=== PATIENT | male | born 1985 | race Two or more races ===

== ENCOUNTER 2024-08-29 11:59 | Emergency (ER) | payer MEDICAID, SELFPAY ==
[2024-08-29 12:00] VITALS: BMI 24.4
[2024-08-29 12:55] VITALS: PULSE 100; RESP 18; TEMP 37.2; O2SAT 98
--- NOTE | 2024-08-29 13:31 | PD.EDURI ---
Upper Respiratory Inf. RME/HPI General Chief Complaint: Chest Pain Stated Complaint: CXP/DIFF BREATHING/SWEATY X 3 DAYS Time Seen by Provider: 08/29/24 13:13 Arrival date/time: 08/29/24 11:59 39-year-old male presents emergency department complains of cough, congestion, body aches and fever patient for symptoms ongoing for last few days patient's son tested positive for influenza there are no other associated symptoms or aggravating factors no other modifying factors, patient denies taking medication before coming to ER today Limitations: no limitations Related Data Home Medications ?Medication ?Instructions ?Recorded ?Confirmed mirtazapine 15 mg tablet 15 mg PO QDAY 03/11/21 03/11/21 risperidone 3 mg tablet 3 mg PO QDAY 03/11/21 03/11/21 Previous Rx's ?Medication ?Instructions ?Recorded acetaminophen 500 mg capsule 1,000 mg (2 x 500 mg) PO Q6H PRN 03/24/22 fever or pain #30 caps ibuprofen 600 mg tablet 600 mg PO TID #30 tabs 03/24/22 sumatriptan succinate 50 mg tablet 50 mg PO Q2H #10 tabs 07/16/23 (Imitrex) ibuprofen 800 mg tablet 800 mg PO TID PRN pain #30 tabs 12/26/23 benzonatate 100 mg capsule 100 mg PO TID #14 caps 08/29/24 ibuprofen 600 mg tablet 600 mg PO Q6H #30 tabs 08/29/24 prednisone 10 mg tablet 30 mg (3 x 10 mg) PO BID 3 days 08/29/24 #18 tabs Allergies Allergy/AdvReac Type Severity Reaction Status Date / Time bee venom protein (honey bee) Allergy Severe Swelling Verified 08/29/24 12:03 of Lip/Tongue/Throat Review of Systems Review of Systems Systems Reviewed: All systems reviewed, normal except as documented Constitutional Constitutional: Reports system reviewed and no additional complaints, except as documented, Reports body ache(s), Reports chills, Reports fever(s) and Reports headache(s) Eyes Eyes: Reports system reviewed and no additional complaints, except as documented and Denies blurry vision ENT Ears, Nose, Mouth, and Throat: Reports system reviewed and no additional complaints, except as documented, Reports headache(s), Denies nasal congestion and Denies nasal discharge Cardiovascular Cardiovascular: Reports system reviewed and no additional complaints, except as documented, Denies chest pain and Denies dyspnea Respiratory Respiratory: Reports system reviewed and no additional complaints, except as documented, Reports chest congestion, Reports cough and Denies dyspnea Gastrointestinal Gastrointestinal: Reports system reviewed and no additional complaints, except as documented and Denies abdominal pain Integumentary/Breasts Skin/Breast: Reports system reviewed and no additional complaints, except as documented and Denies rash Neurologic Neurologic: Reports system reviewed and no additional complaints, except as documented, Reports as per HPI and Reports headache(s) Past Medical History Past Medical History NEUROLOGIC: Negative Neurological Disorders CARDIAC: Negative Cardiac Disorders or Congestive Heart Failure RESPIRATORY: Negative Chronic Obstructive Pulmonary Disease (COPD) GASTROINTESTINAL: Negative Gastrointestinal Disorders GENITOURINARY: Negative Genitourinary Disorders or Renal Disease MUSCULOSKELETAL: Negative Musculoskeletal Disorders ENDOCRINE: Negative Endocrine Disorders, Diabetes Mellitus Type 1 or Diabetes Mellitus Type 2 HEMATOLOGIC: Negative Blood Disorders PSYCHO/SOCIAL: Positive Psychiatric Problems and Recreational Drug Use Social History SMOKING STATUS: Never smoker SUBSTANCE USE: methamphetamine ED Exam General Limitations: Present no limitations General appearance: Present alert and in no apparent distress Head Head exam: Present atraumatic Eye Eye exam: Present normal appearance, PERRL and EOMI ENT ENT exam: Present normal exam, normal oropharynx and mucous membranes moist Neck Neck exam: Present normal inspection, full ROM and trachea midline Chest Chest inspection: Present normal inspection and symmetric chest wall rise Respiratory Respiratory exam: Present normal lung sounds bilaterally; Absent respiratory distress Cardiovascular Cardiovascular exam: Present regular rate, normal rhythm and normal heart sounds Abdominal Exam Abdominal exam: Present soft and normal bowel sounds; Absent distention, tenderness, guarding, rebound or rigidity Extremities Exam Extremities exam: Present normal inspection and full ROM Back Exam Back exam: Present normal inspection and full ROM Neurological Exam Neurological exam: Present alert, oriented X3 and CN II-XII intact Psychiatric Psychiatric exam: Present normal affect and normal mood Skin Skin exam: Present warm, dry, intact and normal color Course Quality Measures none Orders Category Date Time Status Bedside Influenza A&B Antigen Test NOW Care 08/29/24 12:54 Completed EKG (ED Only) Stat Exams 08/29/24 12:52 Stop Req Vital Signs Vital signs: Vital Signs Temperature 99 F 08/29/24 12:55 Pulse Rate 100 08/29/24 12:55 Respiratory Rate 18 08/29/24 12:55 Pulse Oximetry (%) 98 08/29/24 12:55 Oxygen Delivery Method Room Air 08/29/24 12:55 O2 saturation 98% room air within normal limits Upper Respiratory Infection MDM Narrative MDM Narrative:: 39-year-old male presents emergency department complains of cough, congestion, body aches and fever patient for symptoms ongoing for last few days patient's son tested positive for influenza there are no other associated symptoms or aggravating factors no other modifying factors, patient denies taking medication before coming to ER today On exam patient does not appear ill or toxic patient reports no significant medical problems Patient symptoms highly consistent with viral illness I suspect patient has flu Patient checked for influenza Patient tested positive for influenza Patient discharged home in no distress to follow-up with primary care doctor in the next 24 to 48 hours and for any worsening symptoms to return to the ER immediately Patient data External records reviewed:: [facility] previous records Clinical information provided by:: patient Social determinants that could affect healthcare access:: none Patient has the following chronic illnesses:: See history How is presenting disease/condition affected by chronic disease/condition?: uneffected by Evaluation data The following diagnostics were reviewed and interpreted by me:: lab results Lab and/or radiology exams considered but not ordered:: Lab obtained Interpretation Summary: Reviewed by me Medications / Prescriptions Medications or Prescriptions considered but not ordered:: Given Medication administrations:: Given Consultations Consultation(s) initiated? (list below): No Diagnosis Upper Respiratory Differential Diagnosis: upper respiratory infection, otitis media, sinusitis and viral infection Most likely diagnosis given after review of the tests above:: Influenza Admission Indicated Admission indicated?: not indicated Admission Request Was there a request for admission?: No Disposition Plan Disposition Plan: Discharge Discharge Attestation Discharge Attestation: The patient and all family members were given an opportunity to ask questions and understood the discharge instructions. Discharge instructions specifically effects, indications for sooner follow up or return to the emergency department, and the expected course of current diagnosis. Patient condition: Stable Discharge Plan Plan Patient Disposition: HOME (Self Care) Disposition Comment: Stable Prescriptions/Referrals Prescriptions/Med Rec: New prednisone 10 mg tablet 30 mg PO BID 3 Days Qty: 18 0RF benzonatate 100 mg capsule 100 mg PO TID Qty: 14 0RF ibuprofen 600 mg tablet 600 mg PO Q6H Qty: 30 0RF No Action risperidone 3 mg Tablet 3 mg PO QDAY mirtazapine 15 mg Tablet 15 mg PO QDAY ibuprofen 600 mg tablet 600 mg PO TID Qty: 30 0RF acetaminophen 500 mg capsule 1,000 mg PO Q6H PRN (Reason: fever or pain) Qty: 30 0RF sumatriptan succinate [Imitrex] 50 mg tablet 50 mg PO Q2H Qty: 10 0RF Rx Instructions: 50 mg orally; ibuprofen 800 mg tablet 800 mg PO TID PRN (Reason: pain) Qty: 30 0RF Problem List Clinical Impression: Influenza Patient/Caregiver Discharge Instructions Education Materials: The Flu (Influenza) Additional Instructions: Please follow up with your primary care doctor in the next 24-48hrs for any worsening symptoms return here immediately Print Language: Yemeni Stand Alone Forms: Jessica Award Info., Patient Portal Info Letter PA/BUSINESS EDITOR Supervising Physician PA/BUSINESS EDITOR Supervising Physician: Dr Christian
== END 2024-08-29 13:28 | disposition home or self-care (01) ==
LOC: SERX 13:36
PROVIDERS: Emergency Provider Emergency Medicine
DX: J11.1 Influenza due to unidentified influenza virus with other respiratory manifestations (principal)
CPT/HCPCS: 87400; 99283

== ENCOUNTER 2025-07-09 11:43 | Emergency (ER) | payer MEDICAID, SELFPAY ==
--- NOTE | 2025-07-09 12:30 | PC.NURSE ---
called pt back, no answer at this time
--- NOTE | 2025-07-09 12:39 | PC.NURSE ---
CALLED PT BACK NO ANSWER AT THIS TIME
--- NOTE | 2025-07-09 12:42 | PD.EDADDENDU ---
Emergency Room Addendum Addendum Narrative: When I looked for the patient to start my evaluation, I was told the patient eloped. Alexsander Aguirre MD
--- NOTE | 2025-07-09 12:46 | PC.NURSE ---
CALLED PT BACK, NO ANSWER AT THIS TIME
[2025-07-09 12:48] VITALS: BP 111/72; PULSE 88; RESP 18; TEMP 36.8; O2SAT 97; BMI 23.6
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
[2025-07-09] MEDS: ACETAMINOPHEN 500 MG TABLET 1000 MG PO (14:51)
[2025-07-09] MEDS: IBUPROFEN TAB 400 MG TABLET 800 MG PO (16:10)
== END 2025-07-09 17:33 | disposition home or self-care (01) ==
PROVIDERS: Emergency Provider Emergency Medicine; PCP Family Medicine
DX: S00.93XA Contusion of unspecified part of head, initial encounter (principal); S10.93XA Contusion of unspecified part of neck, initial encounter; Y04.0XXA Assault by unarmed brawl or fight, initial encounter
CPT/HCPCS: 70450; 72125; 99282; A9270